=== PATIENT | male | born 1995 | race African-American/Black ===

== ENCOUNTER 2024-10-28 15:04 | Emergency (ER) | payer OTHER ==
--- NOTE | 2024-10-28 15:56 | ED ---
Chest Pain HPI - General Chief Complaint: Chest Pain Stated Complaint: chest pain Time Seen by Provider: 10/28/24 15:24 Source: patient, RN notes reviewed Mode of arrival: ambulatory Limitations: no limitations - History of Present Illness Initial Comments: 29-year-old male presenting to the ER with chief complaint of chest pain x 2 hours. States he was at home playing video games when he suddenly began to experience a sharp pain in the mid sternum. States he has had this pain before 1 year ago where he was seen at [facility] however does not remember the diagnosis. Denies shortness of breath, palpitations, difficulty breathing, fever, cough, nasal congestion. Denies trauma or injury. He does have a history of type 2 diabetes in which he takes insulin however reports his blood glucoses have been normal today. No other health conditions. Denies blood thinners. - Related Data Home Medications Medication Instructions Recorded Confirmed Acetaminophen Tab [Tylenol Tab] 500 mg PO Q4H PRN 10/28/24 10/28/24 Ammonium Lactate Cream [Lac-Hydrin 1 applic TOPICAL HS@199910/28/24 10/28/24 12% Cream] Atorvastatin [Lipitor] 20 mg PO HS@199910/28/24 10/28/24 Benztropine Mesylate [Cogentin] 1 mg PO HS@199910/28/24 10/28/24 Divalproex ER [Depakote ER] 1,000 mg PO HS@199910/28/24 10/28/24 Divalproex ER [Depakote ER] 250 mg PO HS@199910/28/24 10/28/24 Ergocalciferol (Vitamin D2) 1,250 mcg PO SA 10/28/24 10/28/24 [Drisdol (50,000 Iu)] FLUoxetine HCL [PROzac] 10 mg PO DAILY@0700 10/28/24 10/28/24 Fenofibrate [Lofibra] 160 mg PO DAILY@69910/28/24 10/28/24 Gabapentin [Neurontin] 100 mg PO TID@0700,1600,199910/28/24 10/28/24 Insulin Glargine,Hum.rec.anlog 12 units SQ HS@219910/28/24 10/28/24 [Lantus Solostar Pen] Insulin Regular, Human [NovoLIN R] 5 unit SQ AC-TID@07,13,17 10/28/24 10/28/24 Losartan [Cozaar] 25 mg PO DAILY@0700 10/28/24 10/28/24 Magnesium Oxide [Mag-Ox] 400 mg PO BID@0700,1600 10/28/24 10/28/24 Melatonin 10 mg PO HS@209910/28/24 10/28/24 Na Phos,M-B/Na Phos,Di-Ba [Fleet 133 ml RECTAL DIRECTED PRN 10/28/24 10/28/24 Adult] Pantoprazole [Protonix] 40 mg PO DAILY@0700 10/28/24 10/28/24 haloperidoL [Haldol] 5 mg PO HS@199910/28/24 10/28/24 hydrOXYzine pamoate [Vistaril] 50 mg PO TID@0700,1600,199910/28/24 10/28/24 metFORMIN HCL [Glucophage] 500 mg PO BID@0700,1600 10/28/24 10/28/24 methIMAzole [Tapazole] 5 mg PO DAILY@0700 10/28/24 10/28/24 Previous Rx's Medication Instructions Recorded Azithromycin [Zithromax Z Pack] 0 tab PO DIRECTED #6 tab 10/28/24 Allergies Allergy/AdvReac Type Severity Reaction Status Date / Time No Known Allergies Allergy Verified 10/28/24 17:18 Review of Systems ROS Statement: Those systems with pertinent positive or pertinent negative responses have been documented in the HPI. ROS Other: All systems not noted in ROS Statement are negative. EKG Findings - EKG Results: EKG: interpreted by ERMD (EKG reveals normal sinus rhythm with ischemic changes. Ventricular rate 79 bpm, VT interval 147, QRS duration 120, QT/QTc 358/392) Past Medical History Past Medical History: Diabetes Mellitus History of Any Multi-Drug Resistant Organisms: None Reported Past Surgical History: No Surgical Hx Reported Past Psychological History: Bipolar Smoking Status: Never smoker Past Alcohol Use History: None Reported Past Drug Use History: None Reported General Exam Limitations: no limitations General appearance: alert, in no apparent distress Head exam: Present: atraumatic, normocephalic, normal inspection Eye exam: Present: normal appearance, PERRL, EOMI. Absent: scleral icterus, conjunctival injection, periorbital swelling Respiratory exam: Present: normal lung sounds bilaterally, chest wall tenderness (Reproducible midsternal tenderness). Absent: respiratory distress, wheezes, rales, rhonchi, stridor Cardiovascular Exam: Present: regular rate, normal rhythm, normal heart sounds. Absent: systolic murmur, diastolic murmur, rubs, gallop, clicks GI/Abdominal exam: Present: soft, normal bowel sounds. Absent: distended, tenderness, guarding, rebound, rigid Neurological exam: Present: alert, oriented X3 Psychiatric exam: Present: normal affect, normal mood Skin exam: Present: warm, dry, intact, normal color. Absent: rash Course Vital Signs 10/28/24 10/28/24 10/28/24 15:07 15:46 16:30 Temperature 97.9 F 98.6 F Pulse Rate 88 83 Pulse Rate [ 84 [employer] ] Respiratory 16 18 Rate Blood Pressure 132/88 139/82 O2 Sat by Pulse 99 97 Oximetry 10/28/24 17:40 Temperature 98.1 F Pulse Rate 89 Pulse Rate [ [employer] ] Respiratory 18 Rate Blood Pressure 150/97 O2 Sat by Pulse 97 Oximetry Chest Pain MDM - MDM Was pt. sent in by a medical professional or institution (, PA, COLLAR WORKER, urgent care, hospital, or skilled nursing...) When possible be specific @ -No Did you speak to anyone other than the patient for history (EMS, parent, family, police, friend...)? What history was obtained from this source @ -No Did you review nursing and triage notes (agree or disagree)? Why? @ -I reviewed and agree with nursing and triage notes Were old charts reviewed (outside hosp., previous admission, EMS record, old EKG, old radiological studies, urgent care reports/EKG's, skilled nursing records)? Report findings @ -No old charts were reviewed Differential Diagnosis (chest pain, altered mental status, abdominal pain women, abdominal pain men, vaginal bleeding, weakness, fever, dyspnea, syncope, headache, dizziness, GI bleed, back pain, seizure, CVA, palpatations, mental health, musculoskeletal)? @ -Differential Chest Pain: Stable Angina, Unstable Angina, STEMI, NSTEMI Aortic Dissection, Pneumothorax, Musculoskeletal, Esophageal Spasm GERD, Cholecystitis, Pancreatitis, Zoster, this is not meant to be an all-inclusive list. EKG interpreted by me (3pts min.). @ -As above X-rays interpreted by me (1pt min.). @ -Chest x-ray reveals mild patchy atelectasis versus developing infiltrate/pneumonia right lower lung CT interpreted by me (1pt min.). @ -None done U/S interpreted by me (1pt. min.). @ -None done What testing was considered but not performed or refused? (CT, X-rays, U/S, labs)? Why? @ -None What meds were considered but not given or refused? Why? @ -None Did you discuss the management of the patient with other professionals (professionals i.e. , PA, COLLAR WORKER, lab, RT, psych nurse, social service manager, dog food shredder operator, teacher, aoc plans intelligence officer chief, clinical case manager)? Give summary @ -No Was smoking cessation discussed for >3mins.? @ -No Was critical care preformed (if so, how long)? @ -No Were there social determinants of health that impacted care today? How? (Homelessness, low income, unemployed, alcoholism, drug addiction, tr ansportation, low edu. Level, literacy, decrease access to med. care, long-term, rehab)? @ -No Was there de-escalation of care discussed even if they declined (Discuss DNR or withdrawal of care, Hospice)? DNR status @ -No What co-morbidities impacted this encounter? (DM, HTN, Smoking, COPD, CAD, Cancer, CVA, ARF, Chemo, Hep., AIDS, mental health diagnosis, sleep apnea, morbid obesity)? @ -None Was patient admitted / discharged? Hospital course, mention meds given and route, prescriptions, significant lab abnormalities, going to OR and other pertinent info. @ -Discharge. This is a 29-year-old male presenting with chest pain x 2 hours. There is reproducible midsternal chest pain on examination. Patient is provided with 1 dose of Toradol. EKG reveals normal sinus rhythm with no ST changes. La b work largely unremarkable. Chest x-ray reveals mild patchy atelectasis versus developing infiltrate/pneumonia of right lower lung. Results discussed with patient. Although there are no signs of bacterial infection, I will prescribe Z-Rosalio course to cover for infiltrate due to chest x-ray results. Upon reevaluation, patient reports complete improvement of chest pain and feels stable for discharge. Heart score is 1. I do not believe chest pain is caused by emergent etiology at this time. Appropriate return precautions and follow-up care discussed with patient. Case was discussed with my ED attending Dr. Cote. Undiagnosed new problem with uncertain prognosis? @ -No Drug Therapy requiring intensive monitoring for toxicity (Heparin, Nitro, Insulin, Cardizem)? @ -No Were any procedures done? @ -No Diagnosis/symptom? @ -Chest pain, right lower lobe infiltrate Acute, or Chronic, or Acute on Chronic? @ -Acute Uncomplicated (without systemic symptoms) or Complicated (systemic symptoms)? @ -Uncomplicated Side effects of treatment? @ -No Exacerbation, Progression, or Severe Exacerbation? @ -No Poses a threat to life or bodily function? How? (Chest pain, [place], [place], pneumonia, PE, COPD, DKA, ARF, appy, cholecystitis, CVA, Diverticulitis, Homicidal, Suicidal, threat to staff... and all critical care pts) @ -Unlikely at this time Disposition Clinical Impression: Chest pain, Right lower lobe pulmonary infiltrate Disposition: HOME SELF-CARE Condition: Stable Instructions (If sedation given, give patient instructions): Chest Pain (ED) Additional Instructions: Take azithromycin as prescribed. Please return to the Emergency Department if s ymptoms worsen or any other concerns. Prescriptions: Azithromycin [Zithromax Z Pack] 0 tab PO DIRECTED #6 tab Is patient prescribed a controlled substance at d/c from ED?: No Referrals: Reema Gilliam, NPC [Primary Care Provider] - 1-2 days Time of Disposition: 18:04
--- NOTE | 2024-10-28 16:26 | XR ---
EXAMINATION TYPE: XR chest 2V DATE OF EXAM: 10/28/2024 4:18 PM COMPARISON: None CLINICAL INDICATION: Male, 29 years old with history of chest pain, , TECHNIQUE: PA and lateral views FINDINGS: The cardiomediastinal silhouette, aorta, and pulmonary vasculature are within normal limits. There is some mild patchy right lower lung density. No pleural effusion. IMPRESSION: Some mild patchy atelectasis versus developing infiltrate/pneumonia at the right lower lung. [facility], Workstation: AgileSourceNibiruTech LimitedJOSE JUAN, 10/28/2024 4:23 PM
[2024-10-28 16:30] VITALS: RESP 18
[2024-10-28] MEDS: KETOROLAC 15 MG/ML 1 ML VIAL IVP STA (16:30)
[2024-10-28 16:34] LABS: ALT 18 U/L (4-49); AST 24 U/L (17-59); African American GFR (CKD) >90 (>60 ml/min/1.73 sqM); Albumin 4.7 g/dL (3.5-5.0); Alkaline Phosphatase 62 U/L (38-126); Anion Gap 8 mmol/L; Blood Urea Nitrogen 9 mg/dL (9-20); Calcium 10.4 mg/dL (8.4-10.2); Carbon Dioxide 28 mmol/L (22-30); Chloride 103 mmol/L (98-107); Glucose 124 mg/dL (74-99); Non-African American GFR(CKD) >90 (>60 ml/min/1.73 sqM); Potassium 4.7 mmol/L (3.5-5.1); Sodium 139 mmol/L (137-145); Total Bilirubin 0.6 mg/dL (0.2-1.3); Total Protein 7.5 g/dL (6.3-8.2)
[2024-10-28 17:14] LABS: Basophils % (A) 1 %; Eosinophils # (A) 0.1 k/uL (0-0.7); Eosinophils % (A) 2 %; HCT 44.6 % (39.0-53.0); HGB 14.8 gm/dL (13.0-17.5); Lymphocytes # (A) 3.4 k/uL (1.0-4.8); Lymphocytes % (A) 59 %; MCH 28.3 pg (25.0-35.0); MCHC 33.1 g/dL (31.0-37.0); MCV 85.3 fL (80.0-100.0); Mean Platelet Volume 8.9; Monocytes # (A) 0.4 k/uL (0-1.0); Monocytes % (A) 7 %; Neutrophils # (A) 1.8 k/uL (1.3-7.7); Neutrophils % (A) 30 %; Platelet Count 201 k/uL (150-450); RBC 5.23 m/uL (4.30-5.90); RDW 13.1 % (11.5-15.5); WBC 5.9 k/uL (3.8-10.6)
[2024-10-28 17:40] VITALS: BP 150/97; PULSE 89; TEMP 98.1
== END 2024-10-28 18:22 | disposition home or self-care (01) ==
LOC: EC 15:04
DX: R07.89 Other chest pain (principal); R91.8 Other nonspecific abnormal finding of lung field
CPT/HCPCS: 99285; 96374; 36415; 93005; 80053; 84484; 85025; 71046; J1885